=== PATIENT | female | born 1985 | race Caucasian/White ===

== ENCOUNTER 2019-02-04 14:37 | Observation (INO) ==
[2019-02-04 16:04] LABS: Basophils % 0.1 %; Eosinophils # 0.1 K/mcL (0.0-0.6); Eosinophils % 0.7 %; Hematocrit 34.7 % (35.3-44.9); Hemoglobin 11.2 g/dL (11.5-15.4); Immature Granulocytes % 0.3 % (0-4); Lymphocytes # 1.2 K/mcL (0.6-4.6); Lymphocytes % 16.5 %; Mean Corpuscular HGB Conc 32.3 g/dL (31.6-35.5); Mean Corpuscular Hemoglobin 25.4 pg (28.0-33.3); Mean Corpuscular Volume 78.7 fL (83.0-100.0); Mean Platelet Volume 9.8 fL (9.4-12.4); Monocytes # 0.4 K/mcL (0.0-1.3); Monocytes % 5.1 %; Neutrophils # 5.5 K/mcL (1.6-8.9); Platelet Count 212 K/mcL (140-400); Red Blood Count 4.41 M/mcL (3.82-4.97); Red Cell Distribution Width 14.9 % (11.5-14.5); Segmented Neutrophils % 77.3 %; White Blood Count 7.1 K/mcL (4.3-11.1)
[2019-02-04 16:07] LABS: Amphetamine Screen,Urine Negative ng/mL (Cutoff=1000); Barbiturate Screen,Urine Negative ng/mL (Cutoff=200); Benzodiazepines Screen,Urine Negative ng/mL (Cutoff=200); Cannabinoid Screen,Urine Negative ng/mL (Cutoff = 50); Cocaine Screen,Urine Negative ng/mL (Cutoff= 300); Creatinine,Urine 204 mg/dL; Opiate Screen,Urine Negative ng/mL (Cutoff=300); Phencyclidine Screen,Urine Negative ng/mL (Cutoff=25); Protein/Creatinine Ratio,Urine 0.23 mg/mg (0.00-0.20)
[2019-02-04 16:18] LABS: Alanine Aminotransferase 6 Units/L (7-52); Aspartate Amino Transferase 13 Units/L (13-39); BUN/Creatinine Ratio 25 (6-26); Blood Urea Nitrogen 9 mg/dL (6-20); Lactate Dehydrogenase 133 Units/L (140-271); Uric Acid 4.5 mg/dL (2.3-7.6); eGFR For African Americans > 60 (> 60); eGFR For Non-African Americans > 60 (> 60)
[2019-02-04 16:43] LABS: Bilirubin,Urine Small (Negative); Blood,Urine Negative (Negative); Clarity,Urine Cloudy (Clear); Color,Urine Dark Yellow (Yellow); Glucose,Urine (UA) 100 mg/dL (Normal); Ketones,Urine 15 mg/dL (Negative); Leukocyte Esterase,Urine Small (Negative); Nitrite,Urine Negative (Negative); Protein,Urine 30 mg/dL (Neg-Trace); Specific Gravity,Urine > 1.030 (1.010-1.025); Urobilinogen,Urine Normal (Normal)
[2019-02-04 16:45] LABS: Bacteria,Urine Many per hpf (None-Few); Squamous Epithelial Cell,Urine Many per lpf (None-Few); WBC,Urine 15-30 per hpf (0-3)
[2019-02-04 16:59] LABS: Hyaline Casts,Urine None Seen per lpf (None-Few); RBC,Urine 0-3 per hpf (0-3)
[2019-02-04 17:00] LABS: Amorphous Sediment,Urine Moderate (Few)
== END 2019-02-04 17:17 | disposition home or self-care (01) ==
LOC: 1NENULAB
PROVIDERS: ADMIT Advanced Practice Midwife; ATTEND Advanced Practice Midwife

== ENCOUNTER 2019-02-25 16:40 | Inpatient (IN) ==
[2019-02-25 17:54] LABS: Basophils % 0.1 %; Eosinophils % 0.2 %; Hematocrit 38.5 % (35.3-44.9); Hemoglobin 12.2 g/dL (11.5-15.4); Immature Granulocytes % 0.4 % (0-4); Lymphocytes # 1.2 K/mcL (0.6-4.6); Lymphocytes % 12.6 %; Mean Corpuscular HGB Conc 31.7 g/dL (31.6-35.5); Mean Corpuscular Hemoglobin 24.6 pg (28.0-33.3); Mean Corpuscular Volume 77.8 fL (83.0-100.0); Mean Platelet Volume 9.8 fL (9.4-12.4); Monocytes # 0.4 K/mcL (0.0-1.3); Neutrophils # 7.8 K/mcL (1.6-8.9); Platelet Count 257 K/mcL (140-400); Red Blood Count 4.95 M/mcL (3.82-4.97); Red Cell Distribution Width 15.8 % (11.5-14.5); Segmented Neutrophils % 82.7 %; White Blood Count 9.5 K/mcL (4.3-11.1)
[2019-02-25 17:55] LABS: Bilirubin,Urine Negative (Negative); Blood,Urine Negative (Negative); Clarity,Urine Clear (Clear); Color,Urine Yellow (Yellow); Glucose,Urine (UA) Normal (Normal); Ketones,Urine 40 mg/dL (Negative); Leukocyte Esterase,Urine Small (Negative); Nitrite,Urine Negative (Negative); Protein,Urine Negative (Neg-Trace); Urobilinogen,Urine Normal (Normal)
[2019-02-25 17:58] LABS: Bacteria,Urine Few per hpf (None-Few); Hyaline Casts,Urine None Seen per lpf (None-Few); RBC,Urine 0-3 per hpf (0-3); Squamous Epithelial Cell,Urine Many per lpf (None-Few)
[2019-02-25 18:01] LABS: Creatinine,Urine 45 mg/dL; Protein/Creatinine Ratio,Urine 0.18 mg/mg (0.00-0.20)
[2019-02-25 18:10] LABS: Alanine Aminotransferase 9 Units/L (7-52); Aspartate Amino Transferase 15 Units/L (13-39); BUN/Creatinine Ratio 22 (6-26); Blood Urea Nitrogen 9 mg/dL (6-20); Lactate Dehydrogenase 138 Units/L (140-271); eGFR For African Americans > 60 (> 60); eGFR For Non-African Americans > 60 (> 60)
[2019-02-25 19:38] LABS: Amphetamine Screen,Urine Negative ng/mL (Cutoff=1000); Barbiturate Screen,Urine Negative ng/mL (Cutoff=200); Benzodiazepines Screen,Urine Negative ng/mL (Cutoff=200); Cannabinoid Screen,Urine Negative ng/mL (Cutoff = 50); Cocaine Screen,Urine Negative ng/mL (Cutoff= 300); Opiate Screen,Urine Negative ng/mL (Cutoff=300); Phencyclidine Screen,Urine Negative ng/mL (Cutoff=25)
[2019-02-25] MEDS ORDERED: Penicillin G Potassium 5,000,000 UNIT in 0.9 % Sodium Chloride Mini Bag 100 ML IVPB ONE (21:38)
[2019-02-25] MEDS ORDERED: Ringers Solution, Lactated 1,000 ML IVC SCH (21:45)
[2019-02-25] MEDS ORDERED: Metoclopramide 10 MG/2 ML VIAL IVP PRN (22:04)
[2019-02-25] MEDS ORDERED: Famotidine 20 MG/2 ML VIAL IVP PRN (22:04)
[2019-02-25] MEDS ORDERED: Naloxone 0.4 MG/ML INJ IVP PRN (22:04)
[2019-02-25] MEDS ORDERED: Lidocaine 1% 20 ML MDV INFILT PRN (22:04)
[2019-02-25] MEDS ORDERED: Ondansetron 4 MG/2 ML VIAL IVP PRN (22:04)
--- NOTE | 2019-02-25 22:46 | Anesthesia Evaluation PreOp ---
Date of Encounter: 02/25/19 Time of Encounter: 22:44 - Past History Planned Operation: [place] Cardiac History: HTN (PIH) Pulmonary History: Denies Any Significant HX TRAUMA NURSE History: Denies Any Significant HX Other Medical History: Diabetes Type II (gestational, diet controlled) Anesthesia History: No Prior Anesthetic Complications, Past Anesthesia : Yes () Alcohol Use: none Drug use: none Medications and Allergies Allergy/AdvReac Type Severity Reaction Status Date / Time No Known Allergies Allergy Verified 05/26/17 12:19 Anesthesia Results - Labs 02/25/19 17:22 02/25/19 17:30 Anesthesia Exam O2 Sat Height 1.55 m Weight 92.7 kg Height: 61 Weight: 204 - HEENT Pupil (Motor): Pupils equal Mallampati: II Teeth: Normal Oral Opening: Greater than 3 - TRAUMA NURSE LOC: Oriented TRAUMA NURSE Motor: Normal RUE, Normal LUE, Normal RLE, Normal LLE, Normal Face TRAUMA NURSE Sensory: Normal: RUE, LUE, RLE, LLE, Face - Cardiac Rhythm: Regular Murmur: None JVD: No Carotid Bruit: No - Pulmonary Breath Sounds: bilateral Clear Respiratory Effort: Symmetrical Anesthesia Assess/Plan ASA Score: 3 Level of consciousness: Cooperative Anesthetic Plan: Epidural Monitoring Plan: Standard Monitors
[2019-02-25] MEDS ORDERED: EPHEDrine 50 MG/ML VIAL IVP PRN (22:47)
[2019-02-25] MEDS ORDERED: Epidural Premix (fent/bupiv) 110 ML EP SCH (23:00)
--- NOTE | 2019-02-26 00:23 | OB/GYN History & Physical ---
Date of Encounter: 02/26/19 Time of Encounter: 00:21 Assessment and Plan (1) 37 weeks gestation of Current visit: Yes Status: Acute Admit for spontaneous onset of labor at 37w4d (2) Spontaneous onset of labor Current visit: Yes Status: Acute Admit at 37w4d -Expectant management -AROM when appropriate -IV pain medication or epidural if patient desires -Anticipate (3) GBS (group B Streptococcus carrier), +RV culture, currently Current visit: Yes Status: Acute PCN prophylaxis q4h until delivery (4) NST (non-stress test) reactive Current visit: No Status: Acute FHR 140 bpm, moderate variability, +15x15 accels, no decels. History of Present Illness Chief complaint: Spontaneous labor at 37w4d HPI: Ms. Amato is a 33 year old female at 37w4d who presented last evening with complaint of contractions worsening at 1300 today. She reports positive movement, denies vaginal bleeding and fluid leakage. She is visibly uncomfortable with contractions and states she lives one hour away. Her last delivery was rapid and she was only at the hospital for 15 minutes prior to delivery. She made change from 5cm to 6 cm and is having regular, painful contractions that she states have been increasing in intensity since arrival. Blood type A+ GBS positive Rubella Immune HbSAG Nonreactive T. Pall negative Past Med Surg Social Fam HX - Past Medical History Source: patient Medical history: no medical history Psychiatric history: no psych history - Past Surgical History Surgical History: other Additional surgical history: D&C - Social History Smoking Status: Never smoker Smokeless Tobacco Status: No Alcohol use: none Drug use: none Current living situation: Home - Independent Activity Level: Independent ambulation Recent Out of Country Travel Within the Last 8 Weeks: No Exposure or Possible Exposure to Illness During Travel: No - Family History Mother Living Status: Still Living Hx Family Cardiac Disorders: Yes (HTN) Hx Family Respiratory Disorders: No Hx Family Cancer: No Hx Family GI Disorders: No Hx Family Genitourinary Disorders: No Hx Family Endocrine Disorder: No Hx Family Musculoskeletal Disorders: No Hx Family Neuromuscular Disorders: No Hx Family Neurologic Disorders: No Hx Family HEENT Disorders: No Hx Family Autoimmune Disorders: No Hx Family Reproductive Disorders: No Hx Family Psychosocial Disorders: No Hx Family Medical Disorders: No Obstetrical History - Pregnancies : 8 Para: 6 Term: 6 : 0 Ab's: 1 Livin Medications and Allergies Allergy/AdvReac Type Severity Reaction Status Date / Time No Known Allergies Allergy Verified 05/26/17 12:19 Exam - Constitutional Constitutional: well developed, well nourished, no acute distress, average body habitus - HEENT HEENT: Normocephaly, Mucus Membranes Moist - Neck Neck exam: full ROM - Lungs Respiratory exam: CTAB - Cardiovascular Cardiovascular exam: RRR, +S1, +S2 - Abdomen Abdomen: Present: bowel sounds normal, gravid, non tender - Extremities Extremities exam: full ROM, normal capillary refill, normal inspection Deep Tendon Reflex Grade: 2+ Normal - Vulva Vulva: bilateral: normal - Vagina Vagina: Present: normal moisture - Cervix Dilation: 6 Effacement: 80 Station: -2 - Uterus Uterus exam: Present: normal size - Anus/Rectum Anus/Rectum: Present: normal perianal skin Results Result Diagrams: 02/25/19 17:22 02/25/19 17:30 Abnormal lab results MCV 77.8 fL (83.0-100.0) L 02/25/19 17:22 MCH 24.6 pg (28.0-33.3) L 02/25/19 17:22 RDW 15.8 % (11.5-14.5) H 02/25/19 17:22 Creatinine 0.41 mg/dL (0.60-1.20) L 02/25/19 17:30 Lactate Dehydrogenase 138 Units/L (140-271) L 02/25/19 17:30 Urine Ketones 40 mg/dL (Negative) H 02/25/19 17:22 Ur Leukocyte Esterase Small (Negative) H 02/25/19 17:22 Urine Microscopic WBC 5-15 per hpf (0-3) H 02/25/19 17:22 Ur Squamous Epith Cells Many per lpf (None-Few) H 02/25/19 17:22 Ur Culture Indicated? YES (NO) A 02/25/19 17:22 All other labs normal. - VTE Reasons for not Prescribing Prophylaxis: Treatment not Indicated - Low risk for VTE
[2019-02-26] MEDS ORDERED: Penicillin G Potassium 2,500,000 UNIT in 0.9 % Sodium Chloride 100 ML IVPB SCH (02:00)
[2019-02-26] MEDS: *HR* Nalbuphine 10 MG/ML AMPUL IVP PRN ×2 (03:15→07:26)
--- NOTE | 2019-02-26 03:19 | OB Labor Progress Note ---
Date of Encounter: 02/26/19 Time of Encounter: 03:12 Labor Progress Note - Subjective Subjective: Patient coping well with contractions. She has been up ambulating in room for pain management. - Cervix Cervix: 6/80/-2 - Heart Tones Heart Tones: 140 bpm, moderate varirability, +15x15 accels, no decels. - [place]: Irregular but difficult to monitor due to maternal positioning. - Interventions Interventions: SVE AROM for small amount of light meconium fluid. - Plan Plan: Continue PCN prophylaxis IV pain medication or epidural if patient desires Anticipate
[2019-02-26] MEDS ORDERED: Oxytocin 20 units/ LR 1000 mL 20 UNIT/1,000 ML BAG IVC ONE (05:12)
[2019-02-26] MEDS ORDERED: Oxytocin 20 units/ LR 1000 mL 20 UNIT/1,000 ML BAG IVC SCH ×2 (05:15→09:43)
--- NOTE | 2019-02-26 08:10 | OB/GYN Procedure Note ---
Delivery - Delivery Date: 02/26/19 Provider: Flavia Prabhakar Intrapartum events: meconium (light) Delivery induction: none Delivery augmentation: rupture of membranes Delivery monitor: external FHT, external uterine Anesthesia: none Quantitated Blood Loss: 50 - Infant (s) A Infant Delivery Date: 02/26/19 Infant Delivery Time: 07:46 Presentation: vertex Position: ABRAHAN Route of delivery: Gender: Female Viability: Viable at 1 minute: 8 at 5 mins: 9 Shoulder Dystocia: not encountered Placenta: spontaneous Cord: nuchal cord, true knot, nuchal reduced - Repair Episiotomy: none Laceration Description: Periurethral (hemostatic), Superficial (hemostatic, no repair needed) - Complications Delivery complications: meconium (light) Delivery comments: Called to room for patient 9cm with urge to push. Able to reduce cervix with pushing. After 3 contractions of pushing with maternal effort, spontaneous delivery of viable female over intact perineum, superficial laceration noted, hemostatic therefore not repaired. Periurethral laceration also noted, hemostatic therefore not repaired. Infant placed on maternal abdomen for drying and stimulation. Cord clamped and cut after pulsation ceased. Spontaneous delivery of intact placenta, EBL 50 mL. Nuchal cord x 1 easily reduced after delivery of head, true knot x 1 noted. No shoulder dystocia or meconium encountered. Mother and infant in kangaroo care for 2 hour recovery. - Disposition Mom disposition: stable in LDR [place] disposition: stable in LDR
[2019-02-26] MEDS ORDERED: Prenatal Vit/FA 1 EACH TABLET PO SCH (09:43)
[2019-02-26] MEDS ORDERED: Acetaminophen 325 MG TABLET PO PRN (09:43)
[2019-02-26] MEDS ORDERED: Benzocaine/Menthol 56 GM AEROSOL SPRAY TP PRN (09:43)
[2019-02-26] MEDS ORDERED: Lanolin 7 G OINT...G. TP PRN (09:43)
[2019-02-26] MEDS: Ibuprofen 600 MG TABLET PO PRN (20:39)
[2019-02-27] MEDS: Ibuprofen 600 MG TABLET PO PRN (09:28)
--- NOTE | 2019-02-27 09:46 | Discharge Summary ---
Date of Encounter: 02/27/19 Time of Encounter: 09:44 - Discharge Diagnosis (1) Status post vaginal delivery Priority: Primary Status: Acute Comments: Patient meeting day one milestones. Pain well-controlled with prescribed medications. Voiding without difficulty, tolerating regular diet, bleeding light. No bowel movement yet. Anticipate discharge today Patient's spouse had a vasectomy early this month so patient declines control prior to discharge. (2) Breast feeding status of mother Priority: Secondary Status: Acute Comments: support as needed. Will provide breast pump prescription if needed - Discharge Medications Prescriptions: New Breast Pump [BREAST PUMP] 1 each .ROUTE AD #1 each Docusate [Colace] 100 mg PO BID capsule Benzocaine/Menthol [place] [Dermoplast [place]] 1 appl TP QID PRN aerosol PRN Reason: See Comments Lanolin [Lansinoh] 1 appl TP TID PRN oint...g. PRN Reason: Sore Nipples Ibuprofen [Motrin] 600 mg PO Q6HR PRN #60 tablet PRN Reason: Cramping Acetaminophen [Tylenol] 650 mg PO Q6HR PRN tablet PRN Reason: Mild Pain Home Medications: Acetaminophen [Tylenol] 650 mg PO Q6HR PRN tablet 02/27/19 [Rx] Benzocaine/Menthol [place] [Dermoplast [place]] 1 appl TP QID PRN aerosol 02/27/19 [Rx] Breast Pump [BREAST PUMP] 1 each .ROUTE AD #1 each 02/27/19 [Rx] Docusate [Colace] 100 mg PO BID capsule 02/27/19 [Rx] Ibuprofen [Motrin] 600 mg PO Q6HR PRN #60 tablet 02/27/19 [Rx] Lanolin [Lansinoh] 1 appl TP TID PRN oint...g. 02/27/19 [Rx] Allergies/Adverse Reactions: Allergy/AdvReac Type Severity Reaction Status Date / Time No Known Allergies Allergy Verified 05/26/17 12:19 Data Procedures and tests throughout hospitalization: Laboratory Tests 02/25/19 02/25/19 02/25/19 17:22 17:22 17:23 WBC 9.5 RBC 4.95 Hgb 12.2 Hct 38.5 MCV 77.8 L MCH 24.6 L MCHC 31.7 RDW 15.8 H Plt Count 257 MPV 9.8 Immature Gran % 0.4 Seg Neutrophils % 82.7 Lymphocytes % 12.6 Monocytes % 4.0 Eosinophils % 0.2 Basophils % 0.1 Neutrophils # 7.8 Lymphocytes # 1.2 Monocytes # 0.4 Eosinophils # 0.0 Basophils # 0.0 BUN Creatinine Est GFR ( Amer) Est GFR (Non-Af Amer) BUN/Creatinine Ratio POC Glucose Uric Acid AST ALT Lactate Dehydrogenase Urine Color Yellow Urine Clarity Clear Urine pH 6.0 Ur Specific [place] 1.010 Urine Protein Negative Urine Glucose (UA) Normal Urine Ketones 40 H Urine Blood Negative Urine Nitrite Negative Urine Bilirubin Negative Urine Urobilinogen Normal Ur Leukocyte Esterase Small H Urine Microscopic RBC 0-3 Urine Microscopic WBC 5-15 H Ur Squamous Epith Cells Many H Urine Bacteria Few Hyaline Casts None Seen Ur Culture Indicated? YES A Urine Creatinine 45 Protein/Creatinin Ratio 0.18 Urine Total Protein 8 Urine Opiates Screen Negative Ur Buprenorphine Scrn Negative Ur Barbiturates Screen Negative Ur Phencyclidine Scrn Negative Ur Amphetamines Screen Negative U Benzodiazepines Scrn Negative Urine Cocaine Screen Negative U Marijuana (THC) Screen Negative Ur Drug Screen Interp See Below 02/25/19 02/25/19 02/26/19 17:30 22:52 03:02 WBC RBC Hgb Hct MCV MCH MCHC RDW Plt Count MPV Immature Gran % Seg Neutrophils % Lymphocytes % Monocytes % Eosinophils % Basophils % Neutrophils # Lymphocytes # Monocytes # Eosinophils # Basophils # BUN 9 Creatinine 0.41 L Est GFR ( Amer) > 60 Est GFR (Non-Af Amer) > 60 BUN/Creatinine Ratio 22 POC Glucose 83 108 H Uric Acid 5.0 AST 15 ALT 9 Lactate Dehydrogenase 138 L Urine Color Urine Clarity Urine pH Ur Specific [place] Urine Protein Urine Glucose (UA) Urine Ketones Urine Blood Urine Nitrite Urine Bilirubin Urine Urobilinogen Ur Leukocyte Esterase Urine Microscopic RBC Urine Microscopic WBC Ur Squamous Epith Cells Urine Bacteria Hyaline Casts Ur Culture Indicated? Urine Creatinine Protein/Creatinin Ratio Urine Total Protein Urine Opiates Screen Ur Buprenorphine Scrn Ur Barbiturates Screen Ur Phencyclidine Scrn Ur Amphetamines Screen U Benzodiazepines Scrn Urine Cocaine Screen U Marijuana (THC) Screen Ur Drug Screen Interp 02/26/19 07:06 WBC RBC Hgb Hct MCV MCH MCHC RDW Plt Count MPV Immature Gran % Seg Neutrophils % Lymphocytes % Monocytes % Eosinophils % Basophils % Neutrophils # Lymphocytes # Monocytes # Eosinophils # Basophils # BUN Creatinine Est GFR ( Amer) Est GFR (Non-Af Amer) BUN/Creatinine Ratio POC Glucose 99 Uric Acid AST ALT Lactate Dehydrogenase Urine Color Urine Clarity Urine pH Ur Specific [place] Urine Protein Urine Glucose (UA) Urine Ketones Urine Blood Urine Nitrite Urine Bilirubin Urine Urobilinogen Ur Leukocyte Esterase Urine Microscopic RBC Urine Microscopic WBC Ur Squamous Epith Cells Urine Bacteria Hyaline Casts Ur Culture Indicated? Urine Creatinine Protein/Creatinin Ratio Urine Total Protein Urine Opiates Screen Ur Buprenorphine Scrn Ur Barbiturates Screen Ur Phencyclidine Scrn Ur Amphetamines Screen U Benzodiazepines Scrn Urine Cocaine Screen U Marijuana (THC) Screen Ur Drug Screen Interp Labs on day of discharge: Labs from last 24 hours 02/26/19 02/26/19 07:06 03:02 POC Glucose 99 108 H Date of admission: 02/25/19 16:40 Consults: 02/26/19 09:43 Consult to [employer] [CONS] Routine Comment: Vaginal delivery, consult needed Discharging clinician: Flavia Prabhakar Anticipated date of discharge: 02/27/19 - Patient Status Disposition: Home, Self-Care Functional capacity at discharge: independent ambulation Overall status at discharge: patient is progressing back to baseline - Discharge Instructions Follow Up With: Flavia Prabhakar CNM [Advanced Practice Nurse] - - Diet and Activity Activity: resume usual activities as tolerated Diet: regular diet Hospital Course Reason for admission: active labor Delivery: Episiotomy: none Laceration: other (superficial, no repair) complications: none Discharge diagnosis: IUP at term delivered baby: female Hospital course: Delivery Date: 02/26/19 Provider: Flavia Prabhakar Intrapartum events: meconium (light) Delivery induction: none Delivery augmentation: rupture of membranes Delivery monitor: external FHT, external uterine Anesthesia: none Quantitated Blood Loss: 50 - Infant (s) Infant A Infant Delivery Date: 02/26/19 Delivery Time: 07:46 Presentation: vertex Position: ABRAHAN Route of delivery: Gender: Female Viability: Viable at 1 minute: 8 at 5 mins: 9 Shoulder Dystocia: not encountered Placenta: spontaneous Cord: nuchal cord, true knot, nuchal reduced - Repair Episiotomy: none Laceration Description: Periurethral (hemostatic), Superficial (hemostatic, no repair needed) - Complications Delivery complications: meconium (light) Delivery comments: Called to room for patient 9cm with urge to push. Able to reduce cervix with pushing. After 3 contractions of pushing with maternal effort, spontaneous delivery of viable female over intact perineum, superficial laceration noted, hemostatic therefore not repaired. Periurethral laceration also noted, hemostatic therefore not repaired. placed on maternal abdomen for drying and stimulation. Cord clamped and cut after pulsation ceased. Spontaneous delivery of intact placenta, EBL 50 mL. Nuchal cord x 1 easily reduced after delivery of head, true knot x 1 noted. No shoulder dystocia or meconium encountered. Mother and infant in kangaroo care for 2 hour recovery. - Disposition Mom disposition: stable in LDR disposition: stable in LDR Time Attestation: Total time spent providing and/or coordinating discharge services: Time Spent: Less than 30 minutes Exam - Constitutional Vitals: Temp Pulse Resp BP Pulse Ox 97.8 F 86 16 115/77 98 02/27/19 07:45 02/27/19 07:45 02/27/19 07:45 02/27/19 07:45 02/27/19 03:05 General appearance IM: A&O X 3, pleasant, no acute distress, answers questions appropriately - Respiratory Respiratory exam: Present: CTAB. Absent: respiratory distress - Cardiovascular Cardiovascular exam IM: Present: RRR, +S1, +S2. Absent: irregular rhythm - GI/Abdominal GI/Abdominal exam IM: normal bowel sounds, soft - Rectal Rectal exam: deferred - External exam: normal external exam Uterine Tone: Firm Uterus Position: At Umbilicus, Midline - Extremities Exam Extremities exam IM: Present: full ROM, normal capillary refill, normal inspection. Absent: calf tenderness - Neurological Exam Neurological exam: alert, normal gait, oriented X3
[2019-02-27] MEDS ORDERED: FLU Vac QV 19-20 (6Month+)/PF 0.5 ML SYRINGE IM ONE (12:17)
[2019-02-27 20:21] VITALS: BP 131/83
== END 2019-02-27 13:31 | disposition home or self-care (01) | DRG 560 ==
LOC: 1NENULAB → OBSVTOIN 16:40 → 1NENUOBS 02-26 09:44
PROVIDERS: ADMIT Registered Nurse; ATTEND Registered Nurse